=== PATIENT | male | born 1955 | race Hispanic/Latino ===

== ENCOUNTER 2016-10-30 12:34 | Outpatient (CLI) | payer OTHER ==
[2016-10-30 13:03] LABS: Blood Urea Nitrogen 13 mg/dL (9-20)
[2016-10-30] MEDS ORDERED: NACL ONE (13:03)
--- NOTE | 2016-10-30 15:35 | Cat Scan Report ---
CTA NECK: HISTORY: Occlusion, stenosis of bilateral carotid arteries. TECHNIQUE: Helical CT following IV contrast. Sagittal and coronal reformatted images. 3D volume rendering technique. Stenosis was calculated using NASCET criteria. FINDINGS: The visualized aortic arch, innominate artery and proximal bilateral subclavian arteries are widely patent. Both carotid systems are patent throughout. There is mild partially calcified plaque in both carotid bulbs and proximal ICAs with less than 30% stenosis. No evidence for occlusion, dissection or aneurysmal dilatation. The bilateral cervical vertebral arteries are patent with less than 20% stenosis. The left vertebral artery is dominant. IMPRESSION: No hemodynamically significant stenosis is appreciated in the neck. Mild atherosclerotic plaques near both carotid bifurcations.
== END 2016-10-30 12:35 | disposition home or self-care (01) ==
LOC: CT 12:34
PROVIDERS: ATTEND Surgery Vascular Surgery
DX: I65.23 Occlusion and stenosis of bilateral carotid arteries (principal); I70.213 Atherosclerosis of native arteries of extremities with intermittent claudication, bilateral legs
CPT/HCPCS: 36415; 70498; 82565; 84520; Q9967

== ENCOUNTER 2017-01-31 07:31 | Outpatient (CLI) | payer OTHER ==
--- NOTE | 2017-01-31 15:21 | Fluoroscopy Report ---
Barium swallow History: Gastroesophageal reflux disease, stricture. Findings: 70 fluoroscopic images were obtained. Deglutition is normal. There is no evidence for aspiration. There is normal esophageal motility. There is questionable mild narrowing in the proximal esophagus at the upper esophageal sphincter. There is a slightly prominent cricopharyngeus muscle. The patient was able to pass a barium tablet through this area without difficulty. The remainder of the esophagus is normal. No hiatal hernia or reflux was witnessed during this exam. Impression: Mild narrowing at the upper esophageal sphincter. Please see above. The clinical significance of this is unclear.
== END 2017-01-31 07:32 | disposition home or self-care (01) ==
LOC: FLUORO 07:31
PROVIDERS: ATTEND Otolaryngology
DX: K21.9 Gastro-esophageal reflux disease without esophagitis (principal)
CPT/HCPCS: 74220

== ENCOUNTER 2017-03-22 15:37 | Outpatient (CLI) | payer OTHER ==
[2017-03-22 16:09] LABS: Blood Urea Nitrogen 18 mg/dL (9-20)
== END 2017-03-22 15:38 | disposition home or self-care (01) ==
LOC: MRI 15:37
PROVIDERS: ATTEND Urology
DX: E29.1 Testicular hypofunction (principal); Z71.3 Dietary counseling and surveillance; Z90.5 Acquired absence of kidney; Z85.528 Personal history of other malignant neoplasm of kidney
CPT/HCPCS: 36415; 82565; 84520

== ENCOUNTER 2017-04-26 07:11 | Outpatient (CLI) | payer OTHER ==
[2017-04-26 10:21] LABS: Blood Urea Nitrogen 15 mg/dL (9-20)
== END 2017-04-26 07:12 | disposition home or self-care (01) ==
LOC: MRI 07:11
PROVIDERS: ATTEND Urology
DX: E29.1 Testicular hypofunction (principal); Z71.3 Dietary counseling and surveillance; I11.0 Hypertensive heart disease with heart failure; I50.9 Heart failure, unspecified; I25.10 Atherosclerotic heart disease of native coronary artery without angina pectoris; E11.9 Type 2 diabetes mellitus without complications; Z87.891 Personal history of nicotine dependence
CPT/HCPCS: 36415; 82565; 84520